=== PATIENT | female | born 1990 | race African-American/Black ===

== ENCOUNTER 2016-09-15 00:30 | Emergency (ER) | payer MEDICAID ==
[~2016-09-15] VITALS: Ht 167.6 cm; Wt 86.0 kg
[2016-09-15 00:34] VITALS: BP 116/75
== END 2016-09-15 08:00 | disposition left against medical advice (07) ==
LOC: ER 00:30
DX: M43.6 Torticollis (principal); Z53.21 Procedure and treatment not carried out due to patient leaving prior to being seen by health care provider